=== PATIENT | female | born 1990 | race Caucasian/White ===

== ENCOUNTER 2018-03-15 23:46 | Emergency (ER) | payer OTHER, SELFPAY ==
[2018-03-16 00:15] LABS: #Basophils 0.1 thou/uL (0.0-0.2); #Eosinphils 0.3 thou/uL (0.0-0.7); #Lymphocytes 3.4 thou/uL (1.20-3.40); #Monocytes 0.8 thou/uL (0.11-0.59); #Neutrophils 3.2 thou/uL (1.40-6.50); %Basophils 0.9 % (0.0-1.0); %Eosinophils 3.4 % (0.0-10.0); %Lymphocytes 44.3 % (21.0-51.0); %Monocytes 10.3 % (0.0-10.0); %Neutrophils 41.2 % (42.0-75.0); Hemoglobin 13.6 g/dL (12.0-16.0); Mean Corpuscular Hemoglobin 31.6 pg (27.0-31.0); Mean Corpuscular Volume 90.2 fl (81.0-99.0); Mean Platelet Volume 6.6 fL (7.4-10.4); Platelet Count 288 thou/uL (130-400); RBC Distribution Width 11.4 % (11.5-14.5); Red Blood Cell (RBC) Count 4.31 mill/uL (4.20-5.40); White Blood Cell (WBC) Count 7.7 thou/uL (4.8-10.8)
[2018-03-16 00:24] LABS: Pregnancy Test - Urine (BHCG) Negative (Negative); Pregu Control Background? CLEAR/WHITE (CLR/WHITE); Pregu Control Bar Appear? YES (CONTROL BAR)
[2018-03-16 00:26] LABS: PTT 36.5 SEC (22.9-36.1); Prothrombin Time 13.3 SEC (12.0-14.7)
[2018-03-16 00:33] LABS: ALT (SGPT) 29 U/L (8-55); AST (SGOT) 25 U/L (5-34); Albumin 4.5 g/dL (3.5-5.0); Alkaline Phosphatase 78 U/L (40-150); Anion Gap 11 mmol/L (10-20); BUN (Urea Nitrogen) 12 mg/dL (7.0-18.7); Bilirubin, Total 0.5 mg/dL (0.2-1.2); Calc. Creatinine Clearance 0 mL/min (70-130); Calcium 9.7 mg/dL (7.8-10.44); Carbon Dioxide 25 mmol/L (22-29); Chloride 106 mmol/L (98-107); Estimated GFR-MDRD Greater than 90; Glucose 77 mg/dL (70-105); Potassium 3.8 mmol/L (3.5-5.1); Protein, Total 7.5 g/dL (6.0-8.3); Sodium 138 mmol/L (136-145)
[2018-03-16] MEDS ORDERED: Acetaminophen 500 MG TAB ONE (00:51)
[2018-03-16] MEDS ORDERED: Ketorolac Tromethamine 60 MG/2 ML VIAL ONE (01:53)
== END 2018-03-16 01:45 | disposition home or self-care (01) ==
LOC: ERS 23:46
DX: N93.8 Other specified abnormal uterine and vaginal bleeding (principal); F17.210 Nicotine dependence, cigarettes, uncomplicated
CPT/HCPCS: 36415; 80053; 81025; 85025; 85610; 85730; 96360; 96372; 99406; J1885

== ENCOUNTER 2018-06-10 18:28 | Emergency (ER) | payer SELFPAY ==
[2018-06-10] MEDS ORDERED: Proparacaine 0.5% Opth 15 ML BOT ONE (18:37)
[2018-06-10] MEDS ORDERED: Fluorescein Opthalmic Strip ONE (18:38)
== END 2018-06-10 19:16 | disposition home or self-care (01) ==
LOC: ERS 18:28
DX: S05.02XA Injury of conjunctiva and corneal abrasion without foreign body, left eye, initial encounter (principal); F17.210 Nicotine dependence, cigarettes, uncomplicated; Z71.6 Tobacco abuse counseling; X58.XXXA Exposure to other specified factors, initial encounter
CPT/HCPCS: 99406

== ENCOUNTER 2018-11-30 13:18 | Emergency (ER) | payer SELFPAY ==
[2018-11-30] MEDS ORDERED: Dexamethasone 10 MG/ML VIAL ONE (15:02)
[2018-11-30] MEDS ORDERED: Clindamycin 150 MG CAP ONE ×2 (15:03→15:08)
[2018-11-30] MEDS ORDERED: Dexamethasone 4 mg/ml Vial ONE (15:09)
== END 2018-11-30 15:27 | disposition home or self-care (01) ==
LOC: ERS 13:18
DX: K04.7 Periapical abscess without sinus (principal); F41.9 Anxiety disorder, unspecified; F32.9 Major depressive disorder, single episode, unspecified; Z79.899 Other long term (current) drug therapy
CPT/HCPCS: 99282; J1100

== ENCOUNTER 2019-03-23 11:08 | Emergency (ER) | payer MEDICAID, SELFPAY ==
[2019-03-23] MEDS ORDERED: Proparacaine 0.5% Opth 15 ML BOT ONE (11:41)
[2019-03-23] MEDS ORDERED: Fluorescein Opthalmic Strip ONE ×3 (11:41→11:43)
== END 2019-03-23 12:00 | disposition home or self-care (01) ==
LOC: ERS 11:08
DX: S05.02XA Injury of conjunctiva and corneal abrasion without foreign body, left eye, initial encounter (principal); F41.9 Anxiety disorder, unspecified; F32.9 Major depressive disorder, single episode, unspecified; F17.210 Nicotine dependence, cigarettes, uncomplicated; X58.XXXA Exposure to other specified factors, initial encounter
CPT/HCPCS: 99283